=== PATIENT | female | born 1945 | race Asian ===

== ENCOUNTER 2019-02-17 05:50 | Inpatient (IN) | payer MEDICARE, MEDICAID ==
[~2019-02-17] VITALS: Ht 162.6 cm; Wt 72.1 kg
--- NOTE | 2019-02-17 05:59 | Emergency Room Report ---
History of Present Illness General Chief Complaint: Syncope Source: Patient, Family Member (Castro Jang MD) Source: Patient, Family Member (Lester Tam DO) Present Illness HPI Is a 73-year-old [place]ive[place] speaking female who presents with chief complaint of dizziness and weakness. Onset this morning. She got up to get ready to [place] [facility]. She felt lightheaded and dizzy. When she stood up she had a near syncopal episode. Has generalized weakness. Cowden lightheaded. Never had this problem before. Denies any chest pain. Now has nausea and one episode vomiting. Nothing made it better. Eating up made it worse. No chest pain. (Castro Jang MD) HPI Patient present with reports of increased dizziness please refer to the initial report for the history exam and presentation I do agree with the information provided (Lester Tam DO) Allergies: Coded Allergies: No Known Allergies (Unverified , 02/17/19) Patient History Past Medical History: see triage record, old chart reviewed, HTN Now: No (Castro Jang MD) Past Medical History: see triage record Pertinent Family History: none Reviewed Nursing Documentation: PMH: Agreed; PSxH: Agreed (Lester Tam DO) Nursing Documentation-PMH Hx Hypertension: Yes (Castro Jang MD) Review of Systems Eye: Denies: eye pain, blurred vision ENT: Denies: ear pain, nose congestion, throat swelling Respiratory: Denies: cough, shortness of breath Cardiovascular: Denies: chest pain, palpitations Gastrointestinal: Denies: abdominal pain, diarrhea, nausea, vomiting Musculoskeletal: Denies: back pain, joint pain Skin: Denies: rash Neurological: Reports: dizziness; Denies: headache, numbness Endocrine: Denies: increased thirst, increased urine Hematologic/Lymphatic: Denies: easy bruising All Other Systems: negative except mentioned in HPI (Castro Jang MD) Physical Exam Vital Signs Date Time Temp Pulse Resp B/P (MAP) Pulse Ox O2 Delivery O2 Flow Rate FiO2 02/17/19 05:52 98.1 74 18 176/88 98 Room Air vitals with high blood pressure Sp02 EP Interpretation: reviewed, normal General Appearance: well appearing, no apparent distress, alert Head: normocephalic, atraumatic Eyes: bilateral eye PERRL, bilateral eye EOMI ENT: hearing grossly normal, normal pharynx Neck: full range of motion, supple, no meningismus Respiratory: chest non-tender, lungs clear, normal breath sounds Cardiovascular #1: regular rate, rhythm, no murmur Gastrointestinal: normal bowel sounds, non tender, no mass, no organomegaly, no bruit, non-distended Musculoskeletal: back normal, gait/station normal, normal range of motion Psychiatric: mood/affect normal Skin: warm/dry (Castro Jang MD) Medical Decision Making Diagnostic Impression: Primary Impression: Syncope Qualified Codes: R55 - Syncope and collapse Additional Impressions: Weakness generalized Acute hypokalemia ER Course Patient presents with syncope and weakness. Labs, CAT scan, x-ray pending. I will sign this patient out to Dr. Tam for final disposition. (Castro Jang MD) ER Course Patient is a fairly complex patient with multiple differential to consideration including but not limited to cardiac cardiopulmonary and vascular emergencies Other differentials such as neurological, neurosurgical pathology entertained Given the severity of the patient's presentation CT imaging was done does not show any acute disease Patient did have several episodes of vomiting And therefore further medication were provided patient is admitted for further inpatient care an MRI Patient's admitting physician here in the ER Labs Test 02/17/19 06:10 02/17/19 07:05 White Blood Count 9.3 K/UL (4.8-10.8) Red Blood Count 4.95 M/UL (4.20-5.40) Hemoglobin 14.7 G/DL (12.0-16.0) Hematocrit 43.6 % (37.0-47.0) Mean Corpuscular Volume 88 FL (80-99) Mean Corpuscular Hemoglobin 29.7 PG (27.0-31.0) Mean Corpuscular Hemoglobin Concent 33.8 G/DL (32.0-36.0) Red Cell Distribution Width 12.1 % (11.6-14.8) Platelet Count 222 K/UL (150-450) Mean Platelet Volume 6.9 FL (6.5-10.1) Neutrophils (%) (Auto) % (45.0-75.0) Lymphocytes (%) (Auto) % (20.0-45.0) Monocytes (%) (Auto) % (1.0-10.0) Eosinophils (%) (Auto) % (0.0-3.0) Basophils (%) (Auto) % (0.0-2.0) Sodium Level 141 MMOL/L (136-145) Potassium Level 2.8 MMOL/L (3.5-5.1) Chloride Level 103 MMOL/L (98-107) Carbon Dioxide Level 24 MMOL/L (21-32) Anion Gap 14 mmol/L (5-15) Blood Urea Nitrogen 15 mg/dL (7-18) Creatinine 1.0 MG/DL (0.55-1.30) Estimat Glomerular Filtration Rate mL/min (>60) Glucose Level 187 MG/DL (74-106) Calcium Level 8.8 MG/DL (8.5-10.1) Total Bilirubin 0.6 MG/DL (0.2-1.0) Aspartate Amino Transf (AST/SGOT) 41 U/L (15-37) Alanine Aminotransferase (ALT/SGPT) 51 U/L (12-78) Alkaline Phosphatase 63 U/L (46-116) Total Creatine Kinase 131 U/L (26-308) Creatine Kinase MB 1.5 NG/ML (0.0-3.6) Creatine Kinase MB Relative Index 1.1 Troponin I 0.004 ng/mL (0.000-0.056) Pro-B-Type Natriuretic Peptide 45 pg/mL (0-125) Total Protein 8.0 G/DL (6.4-8.2) Albumin 3.9 G/DL (3.4-5.0) Globulin 4.1 g/dL Albumin/Globulin Ratio 1.0 (1.0-2.7) Urine Color Yellow Urine Appearance Clear Urine pH 5 (4.5-8.0) Urine Specific [place] 1.020 (1.005-1.035) Urine Protein 2+ (NEGATIVE) Urine Glucose (UA) Negative (NEGATIVE) Urine Ketones Negative (NEGATIVE) Urine Blood Negative (NEGATIVE) Urine Nitrite Negative (NEGATIVE) Urine Bilirubin Negative (NEGATIVE) Urine Urobilinogen Normal MG/DL (0.0-1.0) Urine Leukocyte Esterase 1+ (NEGATIVE) Urine RBC 0 /HPF (0 - 2) Urine WBC 0-2 /HPF (0 - 2) Urine Squamous Epithelial Cells Occasional /LPF Urine Bacteria Occasional /HPF (NONE) Urine Mucus Few /LPF (NONE/OCC) (Lester Tam DO) EKG Diagnostic Results Rate: normal Rhythm: NSR ST Segments: no acute changes (Castro Jang MD) Rate: normal Rhythm: NSR ST Segments: no acute changes (Lester Tam DO) Rhythm Strip Diag. Results EP Interpretation: yes Rate: 70 Rhythm: NSR, no PVC's, no ectopy (Castro Jang MD) EP Interpretation: yes Rate: 66 Rhythm: NSR, no PVC's, no ectopy (Lester Tam DO) Chest X-Ray Diagnostic Results Chest X-Ray Diagnostic Results : Chest X-Ray Ordered: Yes # of Views/Limited/Complete: 1 View Indication: Chest Pain EP Interpretation: Yes Interpretation: no consolidation, no effusion, no pneumothorax, other - palmar congestion Impression: Other - pulmonary congestion appearance Electronically Signed by: Lester Tam DO (Lester Tam DO) CT/MRI/US Diagnostic Results CT/MRI/US Diagnostic Results : Impression CT headImpression: No mass effect, edema or acute bleed. Suspected small old infarct left cerebellum (Lester Tam DO) Last Vital Signs Date Time Temp Pulse Resp B/P (MAP) Pulse Ox O2 Delivery O2 Flow Rate FiO2 02/17/19 05:52 98.1 74 18 176/88 98 Room Air Status: improved (Castro Jang MD) Status: improved (Lester Tam DO) Disposition: ADMITTED INPATIENT Condition: Serious Castro Jang MD Feb 17, 2019 05:59 Lester Tam DO Feb 17, 2019 13:37
[2019-02-17 06:22] VITALS: BP 176/88
[2019-02-17 06:35] LABS: HEMATOCRIT 43.6 % (37.0-47.0); HEMOGLOBIN 14.7 G/DL (12.0-16.0); MEAN CORPUSCULAR VOLUME 88 FL (80-99); PLATELET COUNT 222 K/UL (150-450); RED BLOOD COUNT 4.95 M/UL (4.20-5.40); RED CELL DISTRIBUTION WIDTH 12.1 % (11.6-14.8); WHITE BLOOD COUNT 9.3 K/UL (4.8-10.8)
[2019-02-17 06:46] LABS: ANION GAP 14 mmol/L (5-15); BLOOD UREA NITROGEN 15 mg/dL (7-18); CALCIUM 8.8 MG/DL (8.5-10.1); CARBON DIOXIDE 24 MMOL/L (21-32); CHLORIDE 103 MMOL/L (98-107); POTASSIUM 2.8 MMOL/L (3.5-5.1); SODIUM 141 MMOL/L (136-145)
[2019-02-17] MEDS ORDERED: Meclizine 25mg tab ORAL ONE (07:00)
[2019-02-17 07:01] LABS: ALANINE AMINOTRANSFERASE 51 U/L (12-78); ALBUMIN 3.9 G/DL (3.4-5.0); ALKALINE PHOSPHATASE 63 U/L (46-116); ASPARTATE AMINO TRANSFERASE 41 U/L (15-37); BILIRUBIN,TOTAL 0.6 MG/DL (0.2-1.0); CKMB 1.5 NG/ML (0.0-3.6); CREATINE KINASE 131 U/L (26-308)
[2019-02-17 07:13] LABS: APPEARANCE,URINE CLEAR; BILIRUBIN, URINE NEGATIVE (NEGATIVE); GLUCOSE, URINE (UA) NEGATIVE (NEGATIVE); KETONES,URINE NEGATIVE (NEGATIVE); LEUKOCYTE ESTERASE ,URINE 1+ (NEGATIVE); NITRITE,URINE NEGATIVE (NEGATIVE); PH,URINE 5 (4.5-8.0); PROTEIN,URINE 2+ (NEGATIVE); UROBILINOGEN,URINE NORMAL MG/DL (0.0-1.0)
[2019-02-17 07:15] VITALS: BP 166/87
[2019-02-17 07:19] LABS: COLOR,URINE YELLOW
[2019-02-17 08:10] VITALS: BP_SYST 156; BP_SYST 177; BP_DIAS 76; BP_DIAS 77
[2019-02-17] MEDS ORDERED: UNOBMED (08:15)
[2019-02-17] MEDS ORDERED: DiphenhydrAMINE 50mg/ml Inj IVP ONE (09:15)
[2019-02-17] MEDS: Lisinopril 20mg tab ORAL SCH (10:27)
[2019-02-17] MEDS: Heparin 5000 units/ml inj SUBQ SCH ×2 (10:33→21:00)
--- NOTE | 2019-02-17 10:50 | Diagnostic Imaging Report ---
Indication: Altered mental status Technique: Contiguous 5 mm thick transaxial imaging of the head obtained in a Siemens Sensation [address] scanner. Soft tissue and bone windows generated. Automatic Exposure Control was utilized. Total Dose length Product (DLP): 1316.[address] Dose Index Volume (CTDIvol): 70.38 mGy Comparison: none Findings: The size and configuration of the cortical sulci, basal cisterns, and ventricles are within normal limits for age. There is a small area of ill-defined low attenuation in the posterior part of the left cerebellum. This may be an area of encephalomalacia from an old infarct. There is no mass effect, midline shift, or edema identified. There is no evidence of acute hemorrhage or abnormal intra-axial or extra-axial fluid collections. The bones and soft tissues are unremarkable. Impression: No mass effect, edema or acute bleed. Suspected small old infarct left cerebellum [facility] has communicated the preliminary results to the Emergency Department. Their findings are largely concordant with this report. The CT scanner at [facility] is accredited by the [employer] and the scans are performed using dose optimization techniques as appropriate to a performed exam including Automatic Exposure control.
[2019-02-17 11:26] VITALS: BP 161/75
--- NOTE | 2019-02-17 11:47 | Diagnostic Imaging Report ---
Indication: Dyspnea Comparison: None A single view chest radiograph was obtained. Findings: Prominent vascularity and heart size demonstrated. Mild interstitial densities are probably present. Bones are osteopenic. IMPRESSION: Suspected CHF
[2019-02-17] MEDS: Meclizine 25mg tab ORAL PRN ×2 (14:47→21:07)
[2019-02-17 16:00] VITALS: BP 170/93
--- NOTE | 2019-02-17 16:02 | Diagnostic Imaging Report ---
Indication: Dizziness weakness Technique: The head was imaged in a 1.5 Jen magnet. Sequences obtained include sagittal and axial T1 FLAIR, axial T2 fast spin echo with fat saturation, axial T2 FLAIR, diffusion and ADC map. Comparison: CT head 02/17/2019 There is a focus of diffusion restriction involving the left cerebellum measuring about 2 x 1.5 cm. There is a contiguous focus in the anterior part of the cerebellar vermis measuring about the 2 cm. Mild T1 hypointense/T2 hyperintense edema is noted. There is no hydrocephalus. There is no hemorrhage identified. Findings consistent with acute nonhemorrhagic CVA. There is a mild generalized atrophy of the brain with prominence of the sulci ventricles and cisterns. There is minimal white matter T2 hyperintense signal bilaterally mainly in the periventricular regions consistent with chronic small vessel disease. Minimal mucosal thickening noted within the ethmoid sinus. The corpus callosum and sella appear unremarkable. Osseous bone marrow signal appears unremarkable. IMPRESSION: Acute left cerebellar CVA as described above. Minimal edema. Age-appropriate atrophy of the brain. Chronic small vessel disease involving periventricular white matter, mild in degree. Critical value communication. Findings were discussed via telephone with Dr. Small via telephone 12:00 PM, 02/17/2019.
--- NOTE | 2019-02-17 16:30 | History and Physical Report ---
DATE OF ADMISSION: 02/17/2019 CHIEF COMPLAINT: Vertigo. HISTORY OF PRESENT ILLNESS: The patient is a 73-year-old female. She has a history of hypertensive heart disease presented this morning with complaints of severe vertigo. According to the patient's son yesterday she was well. She denies any headaches. No fevers. No chills. No cough. No ear pain. No shortness of breath. On evaluation in the emergency room, the patient had episodes of vomiting. She received Zofran and meclizine. She had a CAT scan of the head that was unremarkable. She was hypertensive with a blood pressure of 176. Because of her persistent nausea and vomiting and dizziness, she was admitted for further evaluation and care. PAST MEDICAL HISTORY: As above. PAST SURGICAL HISTORY: None. CURRENT MEDICATIONS: The patient does not recall ALLERGIES: None. FAMILY HISTORY: None. SOCIAL HISTORY: There is no known history of tobacco, ethanol, or drugs. REVIEW OF SYSTEMS: GENERAL: No fever or chills. HEENT: No headaches. No visual changes. Positive dizziness. No ear pain. No sore throat. No congestion. No sinus tenderness. NECK: Supple. CARDIOPULMONARY: No chest pain or shortness of breath. GASTROINTESTINAL: Positive nausea and vomiting. No melena or bright red blood per rectum. GENITOURINARY: No urgency or frequency. MUSCULOSKELETAL: No joint pain or swelling. NEUROLOGIC: No evidence of seizures. PHYSICAL EXAMINATION: VITAL SIGNS: Temperature 98 degrees, blood pressure 176/88, pulse 84, respirations 18. GENERAL: The patient is well-developed. She appears acutely ill. She is responsive. NECK: Supple. No carotid bruits. HEART: Regular rate and rhythm. LUNGS: Clear. ABDOMEN: Soft. EXTREMITIES: No clubbing, cyanosis, or edema. Motor strength is 5/5 bilaterally. [id number], the patient is unable to cooperate with tests or cerebellar function because of effort. LABORATORY AND DIAGNOSTIC DATA: Sodium 141, potassium is 2.8. Troponin 0.004. Natriuretic peptide level was 45. White count 9. Urine was clear. EKG showed sinus rhythm without any acute ST-T wave changes. CT scan of the head was unremarkable. ASSESSMENT: This is a pleasant female admitted with complaints of vertigo suspect secondary to BPV, cannot rule out cerebellar stroke. PLAN: 1. Intravenous hydration. 2. Antiemetics. 3. Carotid duplex, 2D echo, and MRI of the brain. 4. Plan of care was discussed with the patient at the bedside. 5. We will also monitor on telemetry. 6. We will titrate blood pressure medications as needed. Peña Small M.D. DR: Savage JOB#: [id number] CC:
[2019-02-17] MEDS: HydrALAZINE 25mg tab ORAL PRN (16:42)
[2019-02-17] MEDS ORDERED: Gadavist 7.5mMol/7.5ml vial IV PRN (18:00)
[2019-02-17 20:00] VITALS: BP 164/91
[2019-02-18] VITALS (7 sets, daily range): BP systolic 138–172; BP diastolic 59–93
--- NOTE | 2019-02-18 05:30 | Consultation ---
DATE OF CONSULTATION: 02/17/2019 NEUROLOGIC CONSULTATION CONSULTING PHYSICIAN: Leopoldo Gardner M.D. CHIEF COMPLAINT: This 73-year-old right-handed [place] woman, was admitted with a chief complaint of a fall, dizzy spells, and weakness beginning this morning. The patient has had a history of hypertension for 40 years. She never smoked or did any drinking. There is no history of diabetes, coronary artery disease, or hyperlipidemia. She was never on any medications for hyperlipidemia. The patient was not on aspirin prior to this episode. She never had a history of previous TIA or stroke. This morning, the patient got up, developed spinning dizziness with nausea, vomiting, and difficulty walking including a fall or partial fall. There was no loss of consciousness. She denies any muscle weakness. She did complain of some double vision. Denied blurred vision. However, the double vision seems to be gone. There were no tremors or shakes. She denies any chest pain, palpitation, shortness of breath, paresthesias, or dysesthesias except for numbness on the left side of her body. The patient could not walk. The paramedics were called. She was brought to this hospital. She denies any neck pain, but has left-sided headache. Her chemistries revealed potassium of 2.8, AST 41, and glucose of 187. Troponin was 0.004. The rest of the studies were normal. Chemistries were normal. Urinalysis was basically normal except for 2+ protein. The CBC was normal with a hemoglobin of 14.7, platelet count of 222,000, and white count of 8300. The patient had a chest x-ray, which revealed prominent vascularity and heart size demonstrated there were mild interstitial densities probably present. Congestive heart failure was suspected. The head CT scan revealed a small area of ill-defined low attenuation in the posterior part of the left cerebellum, possibly an area of encephalomalacia from an old infarct. The patient's brain MRI revealed restricted diffusion involving the left cerebellum measuring about 2 x 1.5 cm. There was a continuous focus in the anterior part of cerebellar. Vermis measuring about 2 cm. There was no hemorrhage or hydrocephalus. Acute stroke was diagnosed. There was age-appropriate atrophy and chronic small-vessel disease, mild in degree. The patient did have vascular studies of her neck, left vertebral artery revealed the loss of diastolic flow, which indicated advanced occlusive disease. Vertebral artery at the proximal segment was occluded. There was a resistive vertebral artery waveform noted in the distal segment. There was minimal stenosis in the internal carotid arteries on the right and left side. I was asked to see the patient in neurologic consultation. The patient denies a history of peripheral arterial disease. There were no tremors or shakes noted. There is a family history of Parkinson disease. PAST MEDICAL HISTORY/PAST MEDICAL ILLNESSES: Hypertension, see above. ALLERGIES: No known allergies. FAMILY HISTORY: The patient's father probably of complications of alcoholism. One brother is 93. of the mother is unknown, possibly old age. SOCIAL HISTORY: She is , has four children in good health. PAST SURGICAL HISTORY: Sounds like she had tooth implants and four pregnancies. REVIEW OF SYSTEMS: Her appetite has been good. Her weight is stable. PHYSICAL EXAMINATION: GENERAL: She is a well-developed and well-nourished mildly overweight woman, lying in bed, complaining of dizziness and headache. VITAL SIGNS: Temperature is 98.1 degrees, respiration rate of 18, blood pressure is greater than 200/120, and pulse is 93 and regular. HEENT: Examination of her head reveals arcus senilis. NECK: Supple without tenderness. Carotids are +1 to +2 without bruits. LUNGS: Clear to auscultation. CARDIOVASCULAR: PMI was not felt. JVP were not visualized. The patient had a normal S1. S2 is physiologically split. There is no S3 or S4 could be heard. No murmurs, rubs, or clicks. ABDOMEN: Reveals normal bowel sounds without tenderness, masses, or organomegaly. BACK: Could not be tested. EXTREMITIES: She had +2 peripheral pulses in her upper extremities. Lower extremity pulses in feet could not be felt. NEUROLOGIC: Mental status, the patient is basically alert and awake. Judgment could not be tested. Affect is appropriate to her mood. She appeared to be somewhat depressed. Memory, memory is intact to her birthday. Immediate recall 3/3 objects and recent recall was 2/3 objects in 5 minutes. Intellect could not be tested. Orientation time, she knew it was 02/17/2019 and it was Wednesday. Place, she knew she was in [facility]. Person, she was oriented to person. Language function, spoken speech in Luxembourgish was fluent. Comprehension appeared to be intact. CRANIAL NERVE EXAMINATION: CRANIAL NERVE II: Visual schmidt are intact to confrontation. The right fundus was seen and appeared to be benign. The left fundus was not well visualized. CRANIAL NERVES III, IV, AND : Extraocular motility was full. There was nystagmus. No complaints of diplopia. Pupils are approximately 4 mm, round, and light reactive. CRANIAL NERVE V: Facial and corneal sensations were intact to fine touch. Pinprick was normal over the face. CRANIAL NERVE VII: Facial strength appeared to be 5/5. CRANIAL NERVE VIII: The auditory acuity was decreased bilaterally, especially on the right side. CRANIAL NERVES IX AND X: Gag was intact bilaterally. CRANIAL NERVE XI: Sternocleidomastoid strength is 5/5. CRANIAL NERVE XII: Tongue protrudes in the midline without fasciculations or atrophy. MUSCULOSKELETAL: Muscle bulk and tone are normal. Strength is 5/5, proximally and distally without pronator drift. Reflexes are +1 in the upper extremities, and +2 at the knees, 0 at the ankles with an upgoing toe on the right side and downgoing toe on the left side and testing for Babinski response. COORDINATION: Czbdyd-ji-jxds and mvqv-vz-moop testing, rapid alternating movements appeared to be intact. GAIT AND STATION: Could not be tested. SENSORY: Proprioception, fine touch, and pinprick were probably normal. There is decreased vibration to her ankles. 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 This is most likely due to arterial sclerosis. The patient's glucose was high, although she does not meet criteria for diabetes at this time. She has arcus senilis, which could mean that she has hyperlipidemia, but she denied it. However, I would obtain a cholesterol panel on her. I do want to get graphs for diabetes. As far as treatment of her concerns to write for . As far as surgical procedure and embolectomy, I was concerned of stent. As far as the vertebral artery surgery is concerned, we will have to obtain an MRA of her neck and her brain. It is unclear if revascularization helps, somewhat can be attempted; however, it is too early at this time. In the meantime, we can treat her with aspirin and Plavix and obtain MRA scan of the brain and neck. PLAN: 1. Aspirin 325 mg now and Plavix 75 mg now together for not more than three months. 2. MRA scans of the brain and neck or CT angiograms of the brain and neck. 3. I will speak to you about this case. 4. Neuro checks q.4 h. for at least 24 hours. 5. Heparin subcu. 6. Meclizine 25 mg q.6 h. regarding dizziness. 7. As far as the patient's blood pressure is concerned, I would not treat it at least for the next day or so unless it goes over 200/120. 8. Swallowing study should be obtained though probably will be normal. Thank you for this interesting case, Dr. Small. Leopoldo Gardner MD DR: HAYDER JOB#: [id number] CC:
[2019-02-18] MEDS: Meclizine 25mg tab ORAL PRN ×2 (08:19→20:06)
[2019-02-18] MEDS: Aspirin Baby 81mg ORAL SCH (09:00)
[2019-02-18] MEDS ORDERED: Losartan 25mg tab ORAL SCH (09:00)
[2019-02-18] MEDS: Lisinopril 20mg tab ORAL SCH (09:00)
[2019-02-18] MEDS: Heparin 5000 units/ml inj SUBQ SCH ×2 (09:06→21:04)
[2019-02-18] MEDS ORDERED: Atorvastatin 80mg tab ORAL SCH (10:30)
--- NOTE | 2019-02-18 12:16 | Diagnostic Imaging Report ---
INDICATION: Infarct COMPARISON: MRI brain dated 02/17/19 TECHNIQUE: The following sequences were obtained : Sagittal T1 flair, axial diffusion-weighted imaging, axial FLAIR, axial T2, axial T1, axial GRE, ADC FINDINGS: The previous identified inferior left cerebellar hemisphere infarct is slightly increased in size. No acute hemorrhage. No significant midline shift. No mass effect is seen on the fourth ventricle. Stable scattered areas of T2/FLAIR hyperintensity are seen in the supratentorial white matter, likely related to chronic small vessel ischemic disease. Old focal left cerebellar lacunar infarct. The ventricles are normal in size, shape and configuration. No shift of midline structures. The mastoid air cells are clear. The sinuses are normal. The orbits are normal. No focal lesions of the bony calvarium and soft tissues of the scalp. IMPRESSION: 1. Interval progression/increase in size of left cerebellar hemisphere acute infarct. No shift. No significant mass effect on the fourth ventricle. No acute hemorrhage. No other areas of new infarct. 2. Involutional changes with small vessel disease. Old unchanged of old lacunar infarct in the left cerebellar hemisphere. <MYCVCSECTION> Critical Value Communications 02/18/19 12:21 Call Doctor Regarding Stroke, called Carlos hPam MD on 02/18 12:21 (-07:00)
--- NOTE | 2019-02-18 12:21 | Diagnostic Imaging Report ---
MR Angiogram of the Neck INDICATION: Stroke COMPARISON: None TECHNIQUE: 3-D [id number] and postcontrast MR angiogram of the neck was obtained. FINDINGS: The aortic arch and proximal great vessels are unremarkable. Less than 25% short segment stenosis of the proximal left internal carotid artery measuring 6 mm in length. The bilateral common, internal and external carotid arteries are within normal limits. The right vertebral artery is normal in size, course and caliber. The left vertebral artery is completely not seen throughout its entire course from its origin. This can represent a dissection. Correlation can be obtained with CT angiogram of the neck for further evaluation. IMPRESSION: 1. The left vertebral artery is not seen throughout its entire course, cannot exclude the possibility of a dissection, correlation can be obtained with dedicated CT angiogram of the neck for further evaluation. 2. Less than 25% short segment stenosis of the proximal left internal carotid artery measuring 6 mm in length.
--- NOTE | 2019-02-18 12:24 | Diagnostic Imaging Report ---
EXAM: Magnetic Resonance angiography of the [place] HISTORY: Stroke COMPARISON: No prior TECHNIQUE: 3-D time of flight magnetic resonance angiography of the [place] has been obtained. FINDINGS: There is complete occlusion of the V4 segment of the left vertebral artery throughout its entire course. The right vertebral artery is patent. The basilar artery is completely supplied by the right vertebral artery. Bilateral posterior cerebral arteries are all within normal. Bilateral internal carotid arteries are normal in size, course and caliber. Bilateral anterior and middle cerebral arteries are normal in size, course and caliber. No aneurysm or vascular malformation. 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 The right vertebral artery completely supplies the basilar artery. Please refer to dedicated MR angiogram of the neck performed same day for further evaluation.
--- NOTE | 2019-02-18 13:25 | Physician Query ---
--------- THIS DOCUMENT IS A PERMANENT PART OF THE MEDICAL RECORD --------- PLEASE COMPLETE DOCUMENT BEFORE SIGNING Dear Fabby Chambers Date: 02/18/2019 ____ Valver/CDS Name: Milly Nobles Valver/CDS Phone No.: [phone] Exercise your independent professional judgment when responding to the query. Questions asked do not imply a particular answer is desired or expected. We greatly appreciate your clarification on this issue. CLINICAL DOCUMENTATION STATES: Patient admitted with complaints of weakness/ dizziness CLINICAL FINDINGS SHOW: Initial MRI of brain indicated patient have. Acute left cerebellar CVA as described above. Minimal edema. Please respond to the following question: Is there a diagnosis specific to these symptoms or values? If so please state below. PHYSICIAN RESPONSE: Condition Present on Admission: [] Yes [] No []Clinically Undeterminable Please also document in your Progress Notes and/or Discharge Summary and indicate if the condition was present on admission. MTDD
--- NOTE | 2019-02-18 13:29 | General Progress Note ---
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 mata transfer to [facility] for neurosurg eval and possible stenting Subjective ROS Limited/Unobtainable: No Constitutional: Reports: malaise, weakness HEENT: Reports: no symptoms Cardiovascular: Reports: no symptoms Respiratory: Reports: no symptoms Gastrointestinal/Abdominal: Reports: no symptoms Genitourinary: Reports: no symptoms Neurologic/Psychiatric: Reports: pre-existing deficit Endocrine: Reports: no symptoms Hematologic/Lymphatic: Reports: no symptoms Allergies: Coded Allergies: No Known Allergies (Unverified , 02/17/19) All Systems: reviewed and negative except above Subjective still dizzy. mri with left cerebellar cva. vertebral artery occluded. Objective Last 24 Hour Vital Signs Date Time Temp Pulse Resp B/P (MAP) Pulse Ox O2 Delivery O2 Flow Rate FiO2 02/18/19 12:00 98.2 74 19 140/72 (94) 99 02/18/19 09:01 160/81 02/18/19 09:00 160/81 02/18/19 08:28 Room Air 02/18/19 08:00 98.4 73 20 160/81 (107) 94 02/18/19 07:55 74 02/18/19 04:00 98.5 73 18 138/59 (85) 94 02/18/19 03:49 74 02/18/19 01:33 76 146/90 (108) 02/18/19 00:00 96.5 80 18 140/80 (100) 93 02/17/19 23:53 83 02/17/19 21:00 Room Air 02/17/19 20:00 98.4 60 18 164/91 (115) 93 02/17/19 19:56 92 02/17/19 16:42 170/93 02/17/19 16:00 98.1 93 18 170/93 (118) 93 02/17/19 15:56 98 Intake and Output 02/17/19 02/18/19 18:59 06:59 Intake Total 1120 ml 1100 ml Output Total 1000 ml Balance 1120 ml 100 ml Intake Oral 120 ml 100 ml IV Total 1000 ml 1000 ml Output Urine Total 1000 ml # Voids 3 Height (Feet): 5 Height (Inches): 4.00 Weight (Pounds): 159 General Appearance: WD/WN, mild distress Neck: supple Cardiovascular: regular rhythm Respiratory/Chest: chest wall non-tender, lungs clear, normal breath sounds, no respiratory distress Abdomen: normal bowel sounds, non tender, soft, no organomegaly Edema: no edema noted Arm (L), no edema noted Arm (R), no edema noted Leg (L), no edema noted Leg (R), no edema noted Pedal (L), no edema noted Pedal (R), no edema noted Generalized Peña Small MD Feb 18, 2019 13:29
[2019-02-18 14:54] LABS: ALANINE AMINOTRANSFERASE 39 U/L (12-78); ALBUMIN 3.5 G/DL (3.4-5.0); ALKALINE PHOSPHATASE 59 U/L (46-116); ANION GAP 11 mmol/L (5-15); ASPARTATE AMINO TRANSFERASE 32 U/L (15-37); BILIRUBIN,TOTAL 0.5 MG/DL (0.2-1.0); BLOOD UREA NITROGEN 13 mg/dL (7-18); CALCIUM 7.4 MG/DL (8.5-10.1); CARBON DIOXIDE 26 MMOL/L (21-32); CHLORIDE 108 MMOL/L (98-107); CREATININE 0.9 MG/DL (0.55-1.30); POTASSIUM 4.3 MMOL/L (3.5-5.1); SODIUM 145 MMOL/L (136-145)
[2019-02-18] MEDS: HydrALAZINE 25mg tab ORAL PRN (16:53)
[2019-02-18] MEDS: Losartan 50mg tab ORAL SCH (19:13)
--- NOTE | 2019-02-18 20:00 | Progress Note ---
DATE: 02/18/2019 NOTE: "POOR AUDIO QUALITY" SUBJECTIVE: The patient this morning feels better, but still has dizziness with less headache. There are no new symptoms. PHYSICAL EXAMINATION: VITAL SIGNS: Temperature is 98.4 degrees, blood pressure is 160/81, pulse rate is 73 and regular, and pulse oximetry is 94%. MENTAL STATUS: The patient's mental status looked anxious. She is alert and awake Slovenian. Apprehension is intact. CRANIAL NERVE II: Visual schmidt are intact to confrontation. CRANIAL NERVES III, IV, AND : Extraocular motility was full except for perhaps decreased conjugate upgaze. Pupils are 5 mm, round, and reactive to light. CRANIAL NERVE V: Facial and corneal sensations intact to fine touch and pinprick. Pterygoid strength 5/5. CRANIAL NERVE VII: Facial strength 5/5 bilaterally. CRANIAL NERVE VIII: Not tested. CRANIAL NERVES IX AND X: Gag was intact. CRANIAL NERVE XI: Sternocleidomastoid strength is 5/5. CRANIAL NERVE XII: Tongue protrudes in the midline without fasciculations or atrophy. MUSCLE EXAMINATION: Muscle bulk and tone are normal. Strength is 5/5, proximally and distally. Reflexes are +1 in the upper extremities, +2 at the knees, zero at the ankles with downgoing toe on the left side and pnur-ss-qlmospw toe on the right. COORDINATION: Hcmbxk-dd-arsi and kekm-ud-atqd testing are intact. GAIT AND STATION: Not tested. SENSORY EXAMINATION: Pinprick and fine touch are normal. IMPRESSION: There is no progression of her stroke, however, the MRAs were unfortunately not done. The patient should be treated because apparently there is no neurosurgeon on staff here. The patient may need a stent in the right vertebral artery. PLAN: 1. Transfer the patient to [facility]. 2. Neurosurgical consult. 3. Lipitor 80 mg a day. 4. Swallowing study. Leopoldo Gardner MD DR: BUTCH/TALITA JOB#: [id number] CC:
[2019-02-19] VITALS (10 sets, daily range): BP systolic 119–185; BP diastolic 60–85
[2019-02-19] MEDS: Aspirin Baby 81mg ORAL SCH (10:01)
[2019-02-19] MEDS: Losartan 50mg tab ORAL SCH (10:02)
[2019-02-19] MEDS: Lisinopril 20mg tab ORAL SCH (10:02)
[2019-02-19] MEDS: Heparin 5000 units/ml inj SUBQ SCH ×2 (10:05→20:49)
--- NOTE | 2019-02-19 10:44 | Diagnostic Imaging Report ---
INDICATION: CVA TECHNIQUE: Multiple, contiguous 2.5 mm axial cuts of the brain are obtained from the posterior fossa to the cranial vault. Sagittal and coronal reformatted images provided. No IV contrast is administered. One or more of the following dose reduction techniques were used: automated exposure control, adjustment of the mA and/or kV according to patient size, use of iterative reconstruction technique. COMPARISON: CT head dated 02/17/19 FINDINGS: No intracranial hemorrhage, abnormal intra- or extra-axial collections or parenchymal lesions are seen. There are involutional changes with prominence of the sulci, basal cisterns and ventricles. Scattered white matter hypoattenuations are present, likely from small vessel disease. There is expected evolution of the previously visualized left inferior cerebellar infarct. No shift. The ventricular size is grossly unchanged. The osseous structures are unremarkable. The visualized portions of the paranasal sinuses are clear. IMPRESSION: 1. Expected evolution of the previously visualized left cerebellar infarct. No shift. No acute hemorrhage. 2. Involutional changes with small vessel disease. CTDI: 70.38 mGy DLP: 1323.08 mGycm
--- NOTE | 2019-02-19 11:42 | Cardiology Report ---
APPROVED REPORT EXAM: Two-dimensional and M-mode echocardiogram with Doppler and color Doppler. INDICATION CVA/TIA M-Mode DIMENSIONS IVSd1.2 (0.7-1.1cm)Left Atrium (MM)4.1 (1.6-4.0cm) LVDd4.9 (3.5-5.6cm)Aortic Root2.4 (2.0-3.7cm) PWd1.3 (0.7-1.1cm)Aortic Cusp Exc.1.8 (1.5-2.0cm) LVDs3.1 (2.5-4.0cm) PWs1.6 cm Normal left ventricular chamber size, systolic function and wall motion. Left ventricular ejection fraction estimated to be 65 %. Mild left ventricular hypertrophy. Anterior Echo-free space, may be due to pericardial fat or effusion. Mild left atrial enlargement. Right cardiac chamber sizes are within normal limits. Focal aortic valve sclerosis with adequate cusp excursion. Thickened mitral valve leaflets with normal excursion. Mitral annulus and aortic root calcification. Pulmonic valve not well visualized. Normal tricuspid valve structure. IVC dilated at 2.4 cm with slight physiologic collapse suggestive of increased RA pressure. A color flow and spectral Doppler study was performed and revealed: Mild to moderate aortic regurgitation. Trace to mild mitral regurgitation. Can not determine left ventricular diastolic function by mitral diastolic velocities due to atrial fibrillation Mild tricuspid regurgitation. Tricuspid systolic velocities suggests peak right ventricular systolic pressure of 37 mmHg, consistent with mild pulmonary hypertension.
[2019-02-19] MEDS: HydrALAZINE 25mg tab ORAL PRN (13:55)
--- NOTE | 2019-02-19 16:30 | Progress Note ---
DATE: 02/19/2019 SUBJECTIVE: The patient is complaining of bilateral headache with nausea this morning. There is no diplopia and no change in her mental status. OBJECTIVE: VITAL SIGNS: Blood pressure is 168/78, pulse is 63 and regular, temperature is 98.1 degrees, respiratory rate is 18. MENTAL STATUS: The patient is awake and alert and talking to her son. She knows it is Wednesday. CRANIAL NERVE EXAMINATION: CRANIAL NERVE II: Visual schmidt are intact to confrontation. CRANIAL NERVES III, IV, AND : Extraocular motility is full except for perhaps decreased conjugate upgaze. Pupils are 5 mm, round, and light reactive. CRANIAL NERVE V: Corneal and facial sensations are intact to fine touch. Pterygoid strength is 5/5. CRANIAL NERVE VII: Facial strength is 5/5 bilaterally. CRANIAL NERVE VIII: Auditory acuity is at least partially intact. CRANIAL NERVES IX AND X: Gag is intact bilaterally. CRANIAL NERVE XI: Sternocleidomastoid strength is 5/5. CRANIAL NERVE XII: Tongue protrudes in the midline without fasciculations or atrophy. MUSCLE EXAMINATION: Muscle bulk and tone are normal. Strength is 5/5 proximally and distally. Reflexes are trace to +1 in the upper extremities, +2 at the knees with some crossed adductor response, 0 at the ankles. There is an indefinite downgoing toe on the right and downgoing toe on the left side. COORDINATION: Xozn-cp-ctxy testing, ndwtot-tr-uosm testing is intact. Gait and station, not tested. SENSORY: Pinprick and fine touch appeared to be normal as best can be tested. IMPRESSION: I am worried that the patient's headache has changed somewhat. It is now bilateral. Her serum sodium is 145, which is adequate to keep her cerebral edema limited. Now, I am worried about hydrocephalus. I am going to obtain a stat CT scan of the brain. I am trying to get a neurosurgical consultation if available. We are trying to get her through [facility], but she has not been able to be transferred yet. PLAN: 1. Stat CT scan of the brain. 2. Trying to get her transfer and/or neurosurgical consultation today. 3. Keep head of the bed elevated at 30 degrees. 4. No steroid should be given. Leopoldo MD Jj DR: Sophie JOB#: [id number] CC:
[2019-02-19] MEDS ORDERED: Losartan 50mg tab ORAL SCH (18:00)
--- NOTE | 2019-02-19 18:15 | Progress Note ---
DATE: 02/19/2019 SUBJECTIVE: There have been no overnight events. The patient has continued dizziness. She has a mild headache. There are no reports of any nausea or vomiting. Blood pressure remained slightly elevated. There are no beds currently available at [facility] for transfer. OBJECTIVE: VITAL SIGNS: Temperature 97.3 degrees, pulse 66, respirations 18, and blood pressure 161/81. GENERAL: The patient is in no apparent distress. She is arousable. HEART: Regular. LUNGS: Clear. ABDOMEN: Soft. EXTREMITIES: Without clubbing or cyanosis. The patient moves all four extremities. LABORATORY AND DIAGNOSTIC DATA: Labs none. ASSESSMENT: This is an elderly 73-year-old female with complaints of vertigo secondary to cerebellar stroke. She has occlusion of carotid vertebral artery as well as hypertension. PLAN: 1. Continue to titrate blood pressure regimen. 2. Antiplatelet therapy with aspirin and Plavix. 3. I have discussed with the transfer center at [facility] and there are currently no beds available. They are hopeful bed will become available later today or tonight. The patient has also been referred to macro transfer to any other available facilities. Plan of care was discussed at the bedside with both the patient and son and they are in agreement. Peña Small M.D. DR: [place] JOB#: [id number] CC:
[2019-02-19] MEDS: Metoprolol 25mg tab ORAL SCH ×2 (18:16→20:55)
[2019-02-19] MEDS ORDERED: Atorvastatin 80mg tab ORAL SCH (21:00)
--- NOTE | 2019-02-19 21:30 | Discharge Summary ---
DATE OF ADMISSION: 02/17/2019 DATE OF DISCHARGE: 02/19/2019 ADMISSION DIAGNOSES: 1. Severe vertigo. 2. History of hypertension. DISCHARGE DIAGNOSES: 1. Severe vertigo. 2. History of hypertension. 3. Acute left cerebellar stroke. HOSPITAL COURSE: The patient is a 73-year-old female. She has a history of hypertensive heart disease. She was well the night prior to admission, but awoke early in the morning with severe vertigo. She presented initially to the emergency room with severe vertiginous symptoms. On evaluation there, initial laboratories were unremarkable. She had a CAT scan of the brain that was also unremarkable. She was admitted. An MRI done the next day revealed an acute left cerebellar stroke with minimal edema. She had an echocardiogram that showed normal LV function and systolic function without evidence of any thrombus. A carotid duplex showed an occlusion of the left vertebral artery. This was confirmed on MRA. The patient was initially treated with blood pressure control. She was continued on statin therapy. She received aspirin and Plavix. Repeat CAT scan and MRI showed evolution of the left cerebellar stroke. There is no evidence of any hydronephrosis or any hydrocephalus. The consulting neurologist recommended that she be transferred as he was concerned that the patient may develop hydrocephalus or might be a candidate for stenting. On discharge, the patient was stable. She remained vertiginous. She had a headache. Her neuro exam was unremarkable except for continued ataxia on both sides. DIET: Cardiac diet. ACTIVITIES: Bed rest. As tolerated. She will be transferred to [facility] for further care and treatment. Peña Small M.D. DR: NIKKY JOB#: [id number] CC:
[2019-02-20 01:30] VITALS: BP 146/79
--- NOTE | 2019-02-20 04:00 | Progress Note ---
DATE: 02/19/2019 CARDIOLOGY PROGRESS NOTE SUBJECTIVE: The patient continues to have dizziness and is unable to stand due to vertiginous type of complaints. She has not had any more nausea or vomiting. Blood pressure control has improved. OBJECTIVE: VITAL SIGNS: Blood pressure 129/60 to 188/82, heart rate in the 60s, respiratory rate 18, and afebrile. NECK: Supple. Jugular venous pressure normal. LUNGS: Clear. CARDIAC: Regular rhythm rate. Normal S1, S2 with no murmur, rub, or gallop. ABDOMEN: Soft. EXTREMITIES: No edema. NEUROLOGIC: Reveals downgoing toes. Symmetric strength. Unable to ambulate. IMPRESSION: 1. Cerebellar stroke. 2. Malignant hypertension. 3. Bilateral headache. PLAN: 1. Anti-platelet therapy. 2. Continue titration of anti-hypertensive. 3. Continuing close neurologic and cardiovascular monitoring. 4. Awaiting transfer to a higher level of care. Carlos Maynard M.D. DR: EVANS/TALITA JOB#: [id number] CC:
--- NOTE | 2019-02-20 12:45 | Cardiology Report ---
APPROVED REPORT EKG Measurement Heart [id number] TN 208P64 [id number] Normal sinus rhythm Septal infarct, age undetermined Abnormal ECG
--- NOTE | 2019-02-20 12:53 | Cardiology Report ---
APPROVED REPORT EKG Measurement Heart [id number] [place] 210P62 [id number] Sinus rhythm with 1st degree AV block Septal infarct, age undetermined Abnormal ECG
--- NOTE | 2019-02-20 16:45 | Diagnostic Imaging Report ---
APPROVED REPORT CPT Code: 55820 Vascular Symptoms Dizziness and Vertigo Doppler Spectral Velocity Analysis RightLeft RIGHT SIDE: CCA - Imaging reveals no significant plaque in the common carotid artery. ICA The Doppler signal indicates the degree of stenosis is minimal (10%) in the internal carotid artery, and (10%) in the external carotid artery.VERTEBRAL/SUBCLAVIAN- The vertebral and subclavian arteries are within normal limits. LEFT SIDE: CCA - Imaging reveals no significant plaque in the common carotid artery. ICA The Doppler signal indicates the degree of stenosis is minimal (10%) in the internal carotid artery, and (10%) in the external carotid artery. SUBCLAVIAN - The subclavian artery is patent, without evidence of stenosis or occlusion. LEFT VERTEBRAL ARTERY: A resistive vertebral artery waveform noted, at distal segment, a loss of diastolic flow indicates advanced occlusive vertebrobasilar disease. The vertebral artery at the proximal segment is occluded. AZAEL Kunz was notified of abnormal results at 1500 hours. If you have question please call reading physician, Vascular surgeon, Dr. Mendoza at [phone]
== END 2019-02-20 01:50 | disposition short-term general hospital (02) | DRG 66 ==
LOC: EDBD 05:50 → EMR 06:15 → 2E 06:54 → EDBEDREQ 07:54
DX: I63.89 Other cerebral infarction (principal); E87.6 Hypokalemia; H81.13 Benign paroxysmal vertigo, bilateral; I11.9 Hypertensive heart disease without heart failure; I65.02 Occlusion and stenosis of left vertebral artery; R51 Headache; R27.0 Ataxia, unspecified
CPT/HCPCS: 36415; 70450; 70544; 70548; 70551; 71045; 80053; 81003; 82465; 82550; 82553; 83718; 83721; 83735; 83880; 84484; 85025; 93005; 93306; 93880; 96361; 96374; 96376; 99285; A9585; J2405; J8499

== ENCOUNTER 2019-03-31 19:05 | Emergency (ER) | payer MEDICARE, MEDICAID ==
[~2019-03-31] VITALS: Ht 162.6 cm; Wt 72.6 kg
[~2019-03-31 19:05] MED LIST: UNOBMED
--- NOTE | 2019-03-31 19:17 | NUR ---
ED Nurse Note: pt came to ed from home with son. per pt she was washing dishes an hour and a half ago and cut her finger with a knife. pt states bleedings has not stopped. she also stated that she took aspirin today at 1000
[2019-03-31 19:19] VITALS: BP 178/78
[2019-03-31] MEDS ORDERED: AMLODIPINE BESYL5 MG ORAL (19:20)
[2019-03-31] MEDS ORDERED: LORAZEPAM0.5 MG ORAL (19:20)
[2019-03-31] MEDS ORDERED: LOSARTAN POTAS100 MG ORAL (19:20)
[2019-03-31] MEDS ORDERED: LIPITOR80 MG ORAL (19:20)
[2019-03-31] MEDS ORDERED: CLOPIDOGREL75 MG ORAL (19:21)
[2019-03-31] MEDS ORDERED: METOPROLOL TART25 MG ORAL (19:21)
--- NOTE | 2019-03-31 19:21 | NUR ---
ED Nurse Note: right middle finger is bandaged
[2019-03-31] MEDS ORDERED: Lidocaine 1% MPF 10mg/ml 5ml IM ONE (19:30)
[2019-03-31] MEDS ORDERED: Tetanus/Diptheria/Pertussis IM ONE ×2 (19:30→19:32)
--- NOTE | 2019-03-31 19:36 | Emergency Room Report ---
History of Present Illness General Chief Complaint: Laceration Source: Patient Present Illness HPI 73 YO Female presents to the ED c/o Right middle finger laceration sustained several hours ago by a knife. Patient is not up-to-date with tetanus vaccination he is currently taking aspirin otherwise no other blood thinning medications. Isn't states that the finger keeps bleeding despite holding pressure for over an hour. she reports 2/10 in severity pain. She is right hand dominant. denies paresthesias or loss of gross motor movements. Allergies: Coded Allergies: No Known Allergies (Unverified , 02/17/19) Patient History Past Medical History: see triage record Past Surgical History: none Pertinent Family History: none Last Menstrual Period: na Now: No Reviewed Nursing Documentation: PMH: Agreed; PSxH: Agreed Nursing Documentation-PMH Hx Cardiac Problems: Yes - January 2019, stroke Hx Hypertension: Yes Hx Cancer: No Hx Gastrointestinal Problems: No Hx Neurological Problems: No Review of Systems All Other Systems: negative except mentioned in HPI Physical Exam Vital Signs Date Time Temp Pulse Resp B/P (MAP) Pulse Ox O2 Delivery O2 Flow Rate FiO2 03/31/19 19:07 97.9 85 18 95 Room Air 03/31/19 19:19 178/78 Sp02 EP Interpretation: reviewed, normal General Appearance: no apparent distress, alert, GCS 15, non-toxic Head: normocephalic, atraumatic Eyes: bilateral eye normal inspection, bilateral eye PERRL ENT: hearing grossly normal, normal voice Neck: full range of motion Respiratory: lungs clear, normal breath sounds, speaking full sentences Cardiovascular #1: regular rate, rhythm, normal capillary refill Musculoskeletal: back normal, gait/station normal, normal range of motion, non- tender Neurologic: alert, oriented x3, responsive, motor strength/tone normal, sensory intact, speech normal, grossly normal Psychiatric: judgement/insight normal Skin: normal color, no rash, warm/dry, well hydrated, laceration - Right middle finger laceration approx 1 cm in length Procedures Laceration/Wound Repair Laceration/Wound Repair : Consent: Emergent Wound Location: upper extremity - RMF Wound's Depth, Shape: superficial, linear Wound Length (cm): 1 Wound Explored: clean Irrigated w/ Saline (ccs): 100 Anesthesia: 1% Lidocaine Volume Anesthetic (ccs): 2 Wound Repaired With: sutures Suture Size/Type: 5:0 Number of Sutures: 2 Layer Closure?: No Sterile Dressing Applied?: Yes Splint Applied?: Yes Type of Splint Applied: Finger Splint Sling Applied?: No Patient Tolerated: Well Complications: None Medical Decision Making PA Attestation Dr. Tam is my supervising Physician whom patient management has been discussed with. Diagnostic Impression: Primary Impression: Laceration ER Course 73 YO Female presents to the ED c/o Right middle finger laceration sustained several hours ago by a knife. Patient is not up-to-date with tetanus vaccination he is currently taking aspirin otherwise no other blood thinning medications. Isn't states that the finger keeps bleeding despite holding pressure for over an hour. she reports 2/10 in severity pain. She is right hand dominant. denies paresthesias or loss of gross motor movements. Ddx considered but are not limited to laceration, tendon injury, cellulitis, amputation Vital signs: are WNL, pt. is afebrile H&PE are most consistent with: Right middle finger laceration approx 1 cm in length ORDERS: none required at this time, the diagnosis is clinical ED INTERVENTIONS: -Tetanus vaccine was administered as pt. vaccination status was unknown. - The wound was copiously irrigated with normal saline, and explored for foreign body for which no FB was found. - pt. is anesthetized with 1%lidocaine - The wound was approximated and closed using 2 interrupted ethilon sutures. -Bacitracin and sterile dressing is applied. Right middle Finger Splint applied by dental technician metal. Pt. remains neurovascularly intact. Discussed with patient: That we make every effort to approximate the laceration as best as we can so that scarring will be as cosmetically pleasing as possible with our limited cosmetic skill set in the Emergency dept. Regardless of our best efforts there will be scarring after laceration repair. The extent of scarring is unknown at this time. DISCHARGE: At this time pt. is stable for d/c to home. Will provide printed patient care instructions, and any necessary prescriptions. Care plan and follow up instructions have been discussed with the patient prior to discharge. Last Vital Signs Date Time Temp Pulse Resp B/P (MAP) Pulse Ox O2 Delivery O2 Flow Rate FiO2 03/31/19 19:19 97.9 85 18 178/78 95 Room Air Status: improved Disposition: HOME, SELF-CARE Condition: Stable Scripts Cephalexin* (KEFLEX*) 500 Mg Capsule 500 MG ORAL EVERY 12 HOURS for 7 Days, #14 CAP 0 Refills Prov: Deyanira Whitney 03/31/19 Bacitracin/Polymyxin B Sulfate (BACITRACIN-POLYMYXIN OINTMENT) 28.35 Gm Oint...g. 1 APPLIC TP BID, #28.3 GM Prov: Deyanira Whitney 03/31/19 Patient Instructions: Laceration Care, Adult Additional Instructions: Take medications as directed. Follow up with a Primary Care Provider in 3-5 days, even if your symptoms have resolved. --Please review list of primary care clinics, if you do not already have a primary care provider Return sooner to ED if new symptoms occur, or current symptoms become worse. - Please note that this Emergency Department Report was dictated using [employer] certified technician technology software, occasionally this can lead to erroneous entry secondary to interpretation by the dictation equipment. Deyanira Whitney March 31, 2019 19:36
[2019-03-31] MEDS ORDERED: BACITRACIN-P28.35 GM TP (19:53)
[2019-03-31] MEDS ORDERED: CEPHALEXIN500 MG ORAL (19:53)
[2019-03-31 19:58] VITALS: BP 178/78
--- NOTE | 2019-03-31 20:00 | NUR ---
ER DISCHARGE NOTE: Patient is cleared to be discharged per ERMD, pt is aox4, on room air, with stable vital signs. pt was given dc and prescription instructions, pt was able to verbalize understanding, pt id band removed. pt is able to ambulate with steady gait. finger splint on right middle finger was palced prior to dc. pt took all belongings.
== END 2019-03-31 19:58 | disposition home or self-care (01) ==
LOC: EMR 19:40
DX: S61.212A Laceration without foreign body of right middle finger without damage to nail, initial encounter (principal); Z23 Encounter for immunization; W26.0XXA Contact with knife, initial encounter; Y92.9 Unspecified place or not applicable; I10 Essential (primary) hypertension; Z86.73 Personal history of transient ischemic attack (TIA), and cerebral infarction without residual deficits
CPT/HCPCS: 90471; 90715; 99283